=== PATIENT | male | born 1960 | race Caucasian/White ===

== ENCOUNTER 2016-09-21 15:02 | Emergency (ER) | payer OTHER ==
[~2016-09-21] VITALS: Ht 182.9 cm; Wt 134.0 kg
[~2016-09-21 15:02] MED LIST: ASPIR-LOW81 MG PO; AUGMENTIN875 MG PO; AVAPRO300 MG PO; BACTRIM,SEPT1 TABLET PO; Ecotrin PO; HYDROCHLOROTHIA25 MG PO; HYDROCODON-ACE1 EAC7 PO; KEFLEX500 MG PO; MOTRIN800 MG PO; PERCOCET 5/31 TABLET PO; SERTRALINE HCL100 MG PO
[2016-09-21 16:00] VITALS: BP 147/87
== END 2016-09-21 16:00 | disposition home or self-care (01) ==
LOC: EME 15:02
DX: S81.812A Laceration without foreign body, left lower leg, initial encounter (principal)
CPT/HCPCS: 99281; 99284